=== PATIENT | male | born 1990 | race Caucasian/White ===

== ENCOUNTER 2024-07-11 16:33 | Emergency (ER) | payer OTHER ==
[~2024-07-11] VITALS: Ht 182.9 cm; Wt 102.1 kg
[2024-07-11] MEDS: BOOSTRIX VACCINE (TETANUS/DIPHTH/ACEL. PERTUSSIS) 0.5ML SYR IM.IMMUN ONE (20:09)
[2024-07-11] MEDS: IBUPROFEN 600MG TAB PO ONE (20:09)
[2024-07-11] MEDS: LIDOCAINE 1% MDV 20ML VIAL SC ONE (20:15)
[2024-07-11 21:13] VITALS: BP 131/85; TEMP 96.1; O2SAT 100
== END 2024-07-11 21:14 | disposition home or self-care (01) ==
LOC: M ED 16:33
DX: S61.011A Laceration without foreign body of right thumb without damage to nail, initial encounter (principal); S61.210A Laceration without foreign body of right index finger without damage to nail, initial encounter; Y92.019 Unspecified place in single-family (private) house as the place of occurrence of the external cause; Y93.9 Activity, unspecified; Y99.9 Unspecified external cause status; Z23 Encounter for immunization